=== PATIENT | female | born 1980 | race Caucasian/White ===

== ENCOUNTER 2023-04-29 14:58 | Outpatient (CLI) | payer OTHER, SELFPAY | END 2023-04-29 14:59 | disposition home or self-care (01) | LOC: RAD 14:59 | PROVIDERS: Visit Provider Internal Medicine | DX: R55 Syncope and collapse (principal) | CPT/HCPCS: 93306 ==

== ENCOUNTER 2024-07-28 06:03 | Day surgery (SDC) | payer BC, SELFPAY ==
[2024-07-28 06:24] VITALS: BMI 20.7
[2024-07-28 06:33] LABS: Ur HCG Qualitative* Negative (Negative)
[2024-07-28 06:50] VITALS: BP 107/76; PULSE 87; RESP 16; TEMP 36.6; O2SAT 99
[2024-07-28] MEDS: 0.9 % SODIUM CHLORIDE 500 ML 500 ML 100 ML IV (06:53)
[2024-07-28] MEDS: LIDOCAINE 1% MDV 20 ML INJECTION (07:48)
[2024-07-28] MEDS: BUPIVACAINE 0.25% 30 ML INJECTION (07:48)
--- NOTE | 2024-07-28 07:58 | W.PM.GYNPROC ---
Procedure Note Date of procedure: 07/28/24 Will [facility] bill your pro fee for this procedure?: Yes Pre-op diagnosis: 1. Menorrhagia. 2. History of vasovagal syncope with menses. Post-op diagnosis: Same. Procedure: 1. Hysteroscopy. 2. D&C. 3. Yaquelin endometrial ablation. Anesthesia: MAC and local (Paracervical block.) Complications: None. Surgeon: Brianne Jaramillo MD Estimated blood loss (mL): 5 Pathology: specimen obtained, sent to pathology (Endometrial curettings.) Condition: stable Disposition: same day Findings: Normal-appearing endometrial cavity. Procedure Description: After obtaining informed consent, the patient was taken to the operating room where she received monitored anesthesia care. She was prepared and draped in the normal sterile fashion, in the dorsal lithotomy position. An examination was performed under anesthesia which demonstrated a normal sized, mid-position uterus. An open-sided bivalve speculum was introduced into the vagina and the cervix visualized. The anterior lip of the cervix was grasped with a single-tooth tenaculum for traction. A paracervical block was then administered using a total of 20 mL of a 50/50 mixture of 0.25% Marcaine and 1% lidocaine plain. The uterus was gently sounded. Sound length was 9 cm. The cervix length was determined to be 3.5 cm using Hegar dilators, yielding a uterine cavity length of 5.5 cm. The cervix was gently dilated to a #6 Hegar dilator. A hysteroscope was then advanced under direct visualization through the cervix into the uterine cavity. Sterile normal saline was used as distending medium. The uterine cavity was carefully inspected with the findings noted above. The hysteroscope was then removed. The endometrial lining was then sharply curetted. The Yaquelin device was then set to a cavity length of 5.5 cm, inserted through the cervical os into the uterine cavity to the level of the fundus, and deployed. The device was sealed against the cervix. The safety checks were then passed x2 and the 2-minute treatment cycle initiated. Following completion of the treatment cycle, the Yaquelin device was removed. The hysteroscope was advanced again into the uterine cavity and the uterine cavity inspected. A good ablation was noted from the internal os to fundus and to the cornua bilaterally. Pictures were taken for documentation purposes. The hysteroscope was removed. The tenaculum was removed. There was little bleeding from the tenaculum site, which was controlled with direct pressure sponge stick. All instruments were then removed. The patient tolerated the procedure well. Sponge, lap, needle, and instrument counts reported as correct x2. The patient was taken to the recovery room awake in a stable condition.
--- NOTE | 2024-07-28 07:59 | W.ANESCHARGE ---
Anesthesia Charges Start Date/Time Anesthesia Start Date: 07/28/24 Anesthesia Start Time: 07:21 Stop Date/Time Anesthesia Stop Date: 07/28/24 Anesthesia Stop Time: 08:01
[2024-07-28 08:04] VITALS: BP 110/72; PULSE 86; RESP 16; TEMP 36.5; O2SAT 96
[2024-07-28 08:15] VITALS: BP 105/67; PULSE 72; RESP 16; O2SAT 100
[2024-07-28 08:30] VITALS: BP 93/65; PULSE 68; RESP 16; O2SAT 99
[2024-07-28 08:45] VITALS: BP 99/66; PULSE 84; RESP 16; O2SAT 99
[2024-07-28 09:00] VITALS: BP 114/76; PULSE 79; RESP 16; O2SAT 99
== END 2024-07-28 09:41 | disposition home or self-care (01) ==
LOC: OR 06:04
PROVIDERS: Nurse Anesthetist, Certified Registered; Visit Provider Obstetrics & Gynecology
PROC: 0UF98ZZ Fragmentation in Uterus, Via Natural or Artificial Opening Endoscopic (ICD-10-PCS; CPT 58563; principal; 2024-07-28 07:15)
DX: N92.0 Excessive and frequent menstruation with regular cycle (principal); R55 Syncope and collapse
CPT/HCPCS: 58563; 00952; 81025; 88305; J2003; J0665; J1100; J1885; J2405; J2704; J3010; J7030

== ENCOUNTER 2025-07-09 11:04 | Outpatient (CLI) | payer BC, SELFPAY ==
--- NOTE | 2025-07-09 11:15 | CRLHL7_ITS ---
For Patients: As a result of the Century Cures Act, medical imaging exams and procedure reports are released immediately into your electronic medical record. You may view this report before your referring provider. If you have questions, please contact your health care provider. ULTRASOUND-GUIDED CYST ASPIRATION CLINICAL HISTORY: Complicated LEFT breast cyst. COMPARISON STUDIES: Outside exam 07/06/2025. TECHNIQUE: Real-time ultrasound with image documentation was used for targeting the breast lesion. Aspiration performed with an 18-gauge needle. CONSENT and TIME OUT: The procedure, risks, and alternatives were explained to the patient, and a consent was signed. [place] Protocol was followed including pre-procedure verification that relevant information/documentation was available, reviewed and properly matched to the patient; consent accurate and complete; and equipment and supplies available. Time Out was conducted just prior to starting procedure to verify the four required elements: patient identity, correct side/site marked (if applicable), procedure, relevant images/results properly labeled and displayed (if applicable). PROCEDURE: The patient was positioned supine on the ultrasound table. The breast was prepped with ChloraPrep. 5 cc of 1 percent lidocaine used for local anesthesia. 25 cc of cystic fluid removed and discarded. LATERALITY: LEFT breast. LESION: Hypoechoic retroareolar complicated cyst measuring approximately 3.2 cm. No residual cyst remained after drainage. IMPRESSION: Ultrasound-guided cyst aspiration. ACR not applicable Dictated by Corona Sim MD @ 07/09/2025 11:58:56 AM jj/Dictated by: Corona Sim MD @ 07/09/2025 11:58:00 AM (Electronically Signed)
== END 2025-07-09 11:05 | disposition home or self-care (01) ==
PROVIDERS: Visit Provider Family Medicine
DX: N60.02 Solitary cyst of left breast (principal)
CPT/HCPCS: 19000; 76942